=== PATIENT | male | born 1980 | race Caucasian/White ===

== ENCOUNTER 2017-09-28 12:46 | Day surgery (SDC) | payer OTHER, SELFPAY ==
[2017-09-28] VITALS (7 sets, daily range): BP systolic 125–157; BP diastolic 65–93; PULSE 65–96; RESP 16–18; TEMP 36.8–37.4; O2SAT 97–100; BMI 26.3
--- NOTE | 2017-09-28 12:00 | RAD_ITS ---
STUDY: X-RAY - ABDOMEN/PELVIS REASON FOR EXAM: Male, 37 years old. History of kidney stones. TECHNIQUE: Two AP supine views of the abdomen and pelvis. COMPARISON: None. FINDINGS: Normal visualized lung bases. There is an unremarkable bowel gas pattern. Small bilateral nonobstructive intrarenal calculi. There is a 5 mm calculus in the right mid abdomen overlying the transverse processes of the L4 vertebrae. Normal soft tissue structures. Normal visualized osseous structures. RAD/Abdomen Single View IMPRESSION: 5 mm calculus in the right mid abdomen overlying the transverse processes of the L4 vertebrae suggestive of a ureteral calculus. Small bilateral intrarenal calculi. Electronically Signed: Ferny Bro MD at 14:51 EST Tel [phone], Service support ,
[2017-09-28] MEDS: Ciprofloxacin 400 MG/200 ML BAG 200 MG IV (14:00)
--- NOTE | 2017-09-28 15:55 | PCM.DC.URO ---
Discharge Diet: Light diet - advance as tolerated Discharge Activity: Return to Normal Activity Instructions: Shock Wave Lithotripsy Allergies/Adverse Reactions: Allergies amoxicillin [From Augmentin] Allergy (Verified 09/26/17 09:40) Hives clavulanic acid [From Augmentin] Allergy (Verified 09/26/17 09:40) Hives codeine Allergy (Verified 09/26/17 09:40) Hives shrimp Allergy (Verified 09/26/17 09:40) Angioedema Medications to take at Discharge Hydrocodone Bitart/Apap 5-325 [[place] 5/325] 1 - 2 tab PO Q6H PRN PRN #12 tab 09/26/17 Tamsulosin HCl [Flomax] 0.4 mg PO DAILY 14 Days cap 09/26/17 Hydrocodone/Acetaminophen [[place] 5-325 Tablet] 1 ea PO Q4H #14 tab 09/28/17 Ibuprofen 800 mg PO Q8H PRN PRN #20 tab 09/28/17 The following prescriptions were given: Ibuprofen 800 mg PO Q8H PRN PRN #20 tab PRN Reason: Pain Hydrocodone/Acetaminophen [[place] 5-325 Tablet] 1 ea PO Q4H #14 tab Orders to be completed after discharge: Abdomen Single View [RAD] Time Frame: 3 Weeks, Location: None Selected Primary Care Physician: Care Physician,No Primary [Primary Care Provider] - Please Follow Up With: Son Sosa MD When: call for a follow up appt. get xray first.
--- NOTE | 2017-09-28 17:07 | PCM.OPRPT ---
Problem List (1) Right ureteral calculus Status: Acute (2) Renal calculus, left Status: Acute Report of Operation Date of Procedure: 09/28/17 Pre-Operative Diagnosis: Right ureteral calculi causing obstruction. Left renal calculi. Post-Operative Diagnosis: Same Surgery/Procedure Performed:: Right ESWL. Left ESWL. Description of Surgical Findings:: 37-year-old male taken back to the operating room after smooth induction of general anesthesia he is placed in dorsal lithotomy position supine on the table we then used fluoroscopy to identify the stone in the proximal right ureter we then placed a stone in the F2 focal point of the lithotripter machine and proceeded with 3000 shockwaves at a rate of 90 power up to 7. At the end of the treatment cycle the stone had broken up fairly nicely we did find another small fragment in the right kidney without maybe is a fragment of broke off and treated this as well with another 1200 shockwaves. We then went to the left side and identified the stone in the left kidney this was treated 1500 shockwaves and at the end of the treatment cycle the stone broke up into small little pieces. All the stones broken up fairly well decided not to leave any stents in patient's anesthetic was reversed and we plan to see him back in a few weeks with a KUB. Type of Anesthesia:: General Drains: none - Admit VTE Documentation VTE Present on Admission: No VTE Mechan Device Prophylaxis: SCD's VTE Pharm Prophylaxis ordered?: No Reason prophylaxis not ordered:: Treatment Not Indicated
== END 2017-09-28 19:02 | disposition home or self-care (01) ==
LOC: SDC 12:47 → AC 12:50
PROVIDERS: Visit Provider Urology
PROC: (CPT 50590; principal; 2017-09-28 14:25)
DX: N20.2 Calculus of kidney with calculus of ureter (principal); Z87.442 Personal history of urinary calculi
CPT/HCPCS: 00873; 50590; 74018; J7120; J0744; J2405

== ENCOUNTER → 2017-10-13 15:56 | Outpatient (CLI) | payer OTHER, SELFPAY ==
--- NOTE | 2017-10-13 16:00 | RAD_ITS ---
STUDY: X-RAY - ABDOMEN/PELVIS REASON FOR EXAM: Male, 37 years old. Right-sided kidney stone TECHNIQUE: Two AP supine views of the abdomen and pelvis. COMPARISON: 09/28/2017. FINDINGS: Normal visualized lung bases. There is an unremarkable bowel gas pattern. There is no demonstrated free abdominal air. The visualized liver, spleen and kidneys are grossly normal in size and morphology. No renal or ureteral stone in identified on the right. Stable 3mm left lower pole renal stone. Normal soft tissue structures. Normal visualized osseous structures. RAD/Abdomen Single View IMPRESSION: Stable left renal stone, 3mm. No right renal or ureteral stone. Electronically Signed: Jose Jordan DO at 22:49 EST , Service support ,
== END ==
PROVIDERS: Visit Provider Urology
DX: R10.9 Unspecified abdominal pain (principal)
CPT/HCPCS: 74018

== ENCOUNTER → 2018-08-04 08:56 | Outpatient (CLI) | payer OTHER, SELFPAY ==
[2018-08-04 10:18] LABS: Anion Gap 7 (5-15); BUN 19 mg/dL (7-18); BUN/Creat Ratio 16.4 RATIO (10-20); Calcium,Total 8.6 mg/dL (8.5-10.1); Chloride 106 mmol/L (98-107); Cholesterol 171 mg/dL (200); Creatinine, Serum 1.16 mg/dL (0.70-1.30); EST Glomerular Filtration Rate 76 mL/min (>60); Est Glom Filt Rate - Afr Amer 91 mL/min (>60); Glucose 83 mg/dL (74-106); High Density Lipoprotein 41 mg/dL; Potassium 4.2 mmol/L (3.5-5.1); Sodium Level 141 mmol/L (136-145); Triglycerides 46 mg/dL; Very Low Density Lipoprotein 9 mg/dL (5-40)
[2018-08-04 10:26] LABS: Vitamin D,25 Hydroxy 37.9 ng/mL (29.95-100.01)
== END ==
PROVIDERS: Family Provider Family Medicine; PCP Family Medicine; Visit Provider Family Medicine
DX: Z00.00 Encounter for general adult medical examination without abnormal findings (principal); Z13.6 Encounter for screening for cardiovascular disorders
CPT/HCPCS: 36415; 80048; 80061; 82306